=== PATIENT | male | born 1950 | race Caucasian/White ===

== ENCOUNTER → 2019-06-08 12:37 | Outpatient (CLI) | payer MEDICARE, OTHER, SELFPAY ==
--- NOTE | 2019-06-08 | DI.MRI.S_ITS ---
PROCEDURE: MR SHOULDER LT WO CON INDICATIONS: Unspecified injury of muscle(s) and tendon(s) of t TECHNIQUE: Noncontrast oblique coronal T2 fast spin echo with fat saturation, oblique sagittal T1 spin echo and T2 fast spin echo with fat saturation, axial T1 spin echo and T2 fast spin echo with fat saturation through the shoulder. COMPARISON: None. FINDINGS: Image quality: Excellent. Rotator cuff: Tendinosis and low to moderate grade articular and bursal surface partial-thickness tear involving distal supraspinatus at its insertion the humeral head is seen extending to musculotendinous junction. Distal infraspinatus tendinosis and low to moderate grade articular and bursal surface partial-thickness tear is seen with full-thickness rupture involving the posterior fibers of distal supraspinatus at its insertion on the humeral head and 2.4 cm medial retraction of torn tendon fibers to the level of the acromioclavicular joint. Distal subscapularis tendon is intact. Sagittal images demonstrate no significant rotator cuff muscle atrophy. Bones and bursae: No bone marrow contusions or fractures. Moderate acromioclavicular joint and glenohumeral joint osteoarthritic changes are seen. Intraosseous cyst formation and greater tuberosity of humeral head near rotator cuff tendon insertion is also noted. There is small to moderate amount of joint fluid in subacromial subdeltoid bursal fluid. No gross intra-articular loose body. Capsule and soft tissues: In the absence of intra-articular contrast, there is suggestion of anterior inferior labral tear at 40 6:00 position. The glenohumeral ligaments appear intact. Tendinosis and moderate grade partial-thickness tear involving proximal intra-articular portion of long head of biceps tendon is seen. The rotator interval appears normal, without fibrosis. The coracohumeral ligament is normal in thickness. IMPRESSION: 1. Tendinosis and low to moderate grade articular and bursal surface partial-thickness tear involving distal supraspinatus and infraspinatus with full-thickness rupture involving the posterior fibers of distal infraspinatus at its insertion on humeral head with 2.4 cm medial retraction of torn tendon fibers to the level of acromioclavicular joint. Distal subscapularis tendinosis. 2. Moderate acromioclavicular joint and glenohumeral joint osteoarthritis. Moderate amount of joint effusion and subacromial subdeltoid bursal fluid. No gross intra-articular loose body. 3. Suggestion of anterior inferior labral tear at 40 6:00 position. 4. Tendinosis and moderate grade partial-thickness tear involving proximal intra-articular portion of long head biceps tendon. Dictated by: Marcus Davila M.D. on 06/08/2019 at 16:00 Approved by: Marcus Davila M.D. on 06/08/2019 at 16:06
== END ==
PROVIDERS: PCP Nurse Practitioner Family; Visit Provider Nurse Practitioner Family
DX: S46.012A Strain of muscle(s) and tendon(s) of the rotator cuff of left shoulder, initial encounter (principal); S46.112A Strain of muscle, fascia and tendon of long head of biceps, left arm, initial encounter; M19.012 Primary osteoarthritis, left shoulder; X58.XXXA Exposure to other specified factors, initial encounter
CPT/HCPCS: 73221